=== PATIENT | female | born 1945 | race Caucasian/White ===

== ENCOUNTER → 2016-08-19 | Outpatient (CLI) | payer BC ==
[~2016-08-19] MED LIST: CALC500C70 PO; EVS60 PO; PENI-73 PO; RIZA5TAB10 PO; ZNTT/150 PO
--- NOTE | 2016-08-19 14:14 | DIAGNOSTIC IMAGING REPORT ---
LEFT KNEE INCLUDING BILATERAL STANDING AP VIEWS (4 VIEWS) CLINICAL HISTORY: LEFT KNEE PAIN COMPARISON: January 2015 DISCUSSION: No fractures are visualized. The joint spaces appear symmetric on the standing AP views. Joint spaces appear relatively well preserved for age. There are no erosive or destructive changes. IMPRESSION: Normal left knee for age. Electronically signed by: Quintin Wiggins M.D. 08/19/2016 2:13 PM Dictated Date/Time: 08/19/2016 2:12 PM
== END | disposition home or self-care (01) ==
LOC: C.RDSM 13:25
PROVIDERS: ATTEND Family Medicine
DX: M25.562 Pain in left knee (principal)

== ENCOUNTER → 2016-09-07 | Outpatient (CLI) | payer BC ==
--- NOTE | 2016-09-07 12:37 | MAMMOGRAPHY REPORT ---
BILATERAL DIGITAL DIAGNOSTIC MAMMOGRAM TOMOSYNTHESIS WITH CAD AND TARGETED BILATERAL ULTRASOUND: 2016 CLINICAL HISTORY: 71 year-old woman recently presented her physician with a lump in the upper outer q uadrant of the right breast. At the time of physical exam in either her physician or she could feel the lump any longer. She is able to feel a lump again today. Also overdue for annual bilateral scre ening mammography. TECHNIQUE: Bilateral breast tomosynthesis in addition to standard 2D mammography was performed. Curre nt study was also evaluated with a Computer Aided Detection (CAD) system. COMPARISON: Comparison is made to exams dated: 07/05/2015 mammogram, 06/28/2014 mammogram, 05/09/2013 ma mmogram, 01/08/2012 mammogram, and 12/29/2010 mammogram - [facility]. BREAST COMPOSITION: There are scattered areas of fibroglandular density in both breasts. FINDINGS: A try angular skin palpable marker overlies the 11:00 posterior right breast, denoting the area of palpable lump pointed out by the patient. The breast parenchymal pattern is similar to prior mammograms. No obvious new mass, architectural distortion or suspicious microcalcifications are see n near the area of palpable lump in the right breast. There is slight nodularity in the lateral ante rior left breast, 2.7 cm distal to the nipple on the CC tomosynthesis images (slice 23), for which ad ditional sonographic evaluation was performed in the lateral left breast. No focal area of principal data architect ural distortion or suspicious microcalcifications are seen bilaterally. Targeted ultrasound was performed in the area of lump pointed out by the patient, in the 11:00 right breast, 8 cm from the nipple. There is mild nodularity on palpation in this area, that feels similar to adjacent breast tissue. On ultrasound in this location, there is sonographically normal tissue w ithout evidence of a discrete solid or cystic mass. Additional sonographic evaluation was performed in the lateral left breast including the 12:00 and 6: 00 axes. Normal fibroglandular tissue is seen without a suspicious solid or cystic mass. IMPRESSION: ACR BI-RADS CATEGORY 2: BENIGN, TARGETED ULTRASOUND ACR BI-RADS CATEGORY 2: BENIGN 1. There is no suspicious mammographic or targeted sonographic abnormality in the area of palpable l ump in the 11:00 right breast. Therefore, clinical follow-up is recommended as well as continued mon itoring, as biopsy of a clinically suspicious mass should not be precluded by negative imaging. 2. No mammographic or targeted sonographic evidence of malignancy in the left breast. 3. Recommend routine mammography in one year, unless there is a new palpable concern. These results and recommendations were discussed with the patient at the time of the exam. Approximately 10% of breast cancers are not detected with mammography. A negative mammographic report should not delay biopsy if a clinically suggestive mass is present. Sol Gross M.D. ay/:09/07/2016 10:29:59 Traffic Attendant: Chelo MCDANIEL(Todd)(Keerthi), [facility] letter sent: Normal 1/2 BI-RADS Code: ACR BI-RADS Category 2: Benign Ultrasound BI-RADS: ACR BI-RADS Category 2: Benign
== END | disposition home or self-care (01) ==
LOC: C.MAMM 09:47
PROVIDERS: ATTEND Obstetrics & Gynecology
DX: N63 Unspecified lump in breast (principal)

== ENCOUNTER → 2017-01-25 | Outpatient (CLI) | payer BC | END | disposition home or self-care (01) | LOC: C.MAMM 11:31 | PROVIDERS: ATTEND Obstetrics & Gynecology | DX: M81.0 Age-related osteoporosis without current pathological fracture (principal); M85.852 Other specified disorders of bone density and structure, left thigh; M85.851 Other specified disorders of bone density and structure, right thigh ==

== ENCOUNTER → 2017-01-27 | Outpatient (CLI) | payer BC | END | disposition home or self-care (01) | LOC: C.PAPS 08:09 | PROVIDERS: ATTEND Obstetrics & Gynecology | DX: Z12.4 Encounter for screening for malignant neoplasm of cervix (principal) ==